=== PATIENT | female | born 1990 | race Caucasian/White ===

== ENCOUNTER → 2020-11-11 | Outpatient (CLI) | payer OTHER ==
--- NOTE | 2020-11-11 10:37 | US ---
EXAMINATION TYPE: US OB anatomy transabd DATE OF EXAM: 11/11/2020 COMPARISON: NONE HISTORY: O36.62XO Large for dates TECHNIQUE: Transabdominal (TA) EXAM MEASUREMENTS: GESTATIONAL AGE / DATING Physician Established: (25 weeks/0 days) EDC: 02/24/2021 Dates by LMP: (25 weeks/0 days) EDC: 02/24/2021 Dates by First Scan: No previous here Dates by Current Scan for: (25 weeks/0 days) EDC: 02/24/2021 SURVEY IUP: Single PLACENTA: Anterior PREVIA: No previa, low lying placenta seen, reevaluated post void, shows no previa ROCIO: 12.7 cm Normal CERVICAL LENGTH (transabdominal: norm > 3.0cm): 3.9 cm BIOMETRY PRESENTATION: Vertex BPD: 6.2 cm 25 weeks / 0 days HC: 22.2 cm 24 weeks / 2 days AC: 21.5 cm 26 weeks / 0 days FL: 4.8 cm 26 weeks / 0 days ESTIMATED WEIGHT IN GRAMS: 847.9 grams ESTIMATED WEIGHT IN LBS/OZ: 1 lbs. 14 oz. WEIGHT PERCENTAGE BASED ON ESTABLISHED DATE: 74 % HC/AC: 1.04 Normal FL/AC: 22.26 Normal HEART RATE: 166 bpm RHYTHM: Normal ANATOMY SEEN (within normal limits): * Lateral Vent (< 1 cm) 0.9 cm * Cisterna Magna (< 1.1 cm) 0.6 cm * Nuchal Fold (< 0.6 cm) 0.3 cm * Cerebellum (varies with age) 2.7 cm Choroid Plexus (bilateral) Midline Falx Cavus Septi Pellucidi Four Chamber Heart Outflow tracts: LVOT/RVOT Stomach Situs Nose / Lips Diaphragm Kidneys (bilateral) Bladder Cord Insert Three Vessel Cord Legs (bilateral) ANATOMY NOT SEEN: Due to position Longitudinal Spine Transverse Spine Arms (bilateral) Viable single IUP measuring 25 weeks 0 days with heart rate of 166bpm and an estimated delivery date of 02/24/2021. Patient returning for OB call back for anatomy not seen on today's exam. IMPRESSION: Single viable intrauterine as noted above. OB callback as noted.
== END | disposition home or self-care (01) ==
LOC: RADUSWWP 09:17
PROVIDERS: ATTEND Obstetrics & Gynecology
DX: O36.62X0 Maternal care for excessive fetal growth, second trimester, not applicable or unspecified (principal); Z3A.00 Weeks of gestation of pregnancy not specified
CPT/HCPCS: 76811

== ENCOUNTER → 2020-11-26 | Outpatient (CLI) | payer OTHER ==
--- NOTE | 2020-11-26 15:49 | US ---
EXAMINATION TYPE: US OB Call Back DATE OF EXAM: 11/26/2020 COMPARISON: US CLINICAL HISTORY: OB CALLBACK. Assess spine longitudinal Transverse, plus bilateral arms. GESTATIONAL AGE / DATING Dates by Initial Survey Scan: (25 weeks/ 0 days) EDC: 02/24/21 HEART RATE: 146 bpm RHYTHM: Normal ANATOMY SEEN (second anatomic survey look): Longitudinal Spine: wnl Transverse Spine: wnl Arms (bilateral): seen IMPRESSION: Limited ultrasound, no evident abnormality
== END | disposition home or self-care (01) ==
LOC: RADUSWWP 14:08
PROVIDERS: ATTEND Obstetrics & Gynecology
DX: Z53.9 Procedure and treatment not carried out, unspecified reason (principal)

== ENCOUNTER 2021-02-18 21:46 | Inpatient (IN) | payer OTHER ==
[2021-02-18] MEDS ORDERED: METHYLERGONOVINE 0.2 MG/ML 1 ML AMP IM PRN (22:16)
[2021-02-18] MEDS ORDERED: TERBUTALINE 1 MG/ML VIAL SQ PRN (22:16)
[2021-02-18] MEDS ORDERED: CARBOPROST TROMETHAMINE 250 MCG/ML 1 ML AMP IM PRN (22:16)
[2021-02-18] MEDS ORDERED: OXYTOCIN 10 UNIT/ML 1 ML VIAL IM PRN (22:16)
[2021-02-18] MEDS ORDERED: LIDOCAINE 0.5% (PF) 5 MG/ML (50 ML SDV) SQ PRN (22:16)
[2021-02-18] MEDS ORDERED: OXYTOCIN 30 UNITS/500 ML NS 30 UNIT in SALINE 1 500ML.BAG IV SCH (22:30)
[2021-02-18] MEDS ORDERED: LACTATED RINGERS 1,000 ML IV SCH (22:30)
[2021-02-18] MEDS: LACTATED RINGERS 1,000 ML IV SCH (22:30)
[2021-02-18] MEDS ORDERED: BUTORPHANOL 1 MG/ML 1 ML VIAL IV PRN (22:34)
[2021-02-18 22:40] LABS: Basophils % (A) 0 %; Eosinophils # (A) 0.1 k/uL (0-0.7); Eosinophils % (A) 1 %; HCT 36.8 % (34.0-46.0); HGB 12.2 gm/dL (11.4-16.0); Lymphocytes # (A) 2.3 k/uL (1.0-4.8); Lymphocytes % (A) 28 %; MCH 29.2 pg (25.0-35.0); MCHC 33.3 g/dL (31.0-37.0); MCV 87.9 fL (80.0-100.0); Mean Platelet Volume 10.3; Monocytes # (A) 0.5 k/uL (0-1.0); Monocytes % (A) 6 %; Neutrophils # (A) 5.3 k/uL (1.3-7.7); Neutrophils % (A) 64 %; Platelet Count 191 k/uL (150-450); RBC 4.18 m/uL (3.80-5.40); RDW 14.6 % (11.5-15.5); WBC 8.4 k/uL (3.8-10.6)
[2021-02-19] MEDS: LACTATED RINGERS 1,000 ML IV SCH ×2 (05:51→10:30)
[2021-02-19] MEDS ORDERED: AMPICILLIN 2,000 MG in SODIUM CHLORIDE 0.9% 100 ML IVPB STA (07:22)
[2021-02-19 07:34] LABS: Glucose,Whole Blood 74 mg/dL (75-99)
--- NOTE | 2021-02-19 07:43 | P.HPOB ---
History of Present Illness H&P Date: 02/18/21 Chief Complaint: SROM 30-year-old presents at 39 weeks and 2 days complaining of spontaneous rupture of membranes at 1940. Admission was positive in triage. Her cervix is 1 cm dilated, 50% effaced, and -2 station. She is not kyle. heart tones 140 with moderate variability and reactive. Review of Systems All systems: negative Constitutional: Denies chills, Denies fever Eyes: denies blurred vision, denies pain Ears, nose, mouth and throat: Denies headache, Denies sore throat Cardiovascular: Denies chest pain, Denies shortness of breath Respiratory: Denies cough Gastrointestinal: Denies abdominal pain, Denies diarrhea, Denies nausea, Denies vomiting Genitourinary: Denies dysuria, Denies hematuria Musculoskeletal: Denies myalgias Integumentary: Denies pruritus, Denies rash Neurological: Denies numbness, Denies weakness Psychiatric: Denies anxiety, Denies depression Endocrine: Denies fatigue, Denies weight change Past Medical History Additional Past Medical History / Comment(s): Gestational DM A1 History of Any Multi-Drug Resistant Organisms: None Reported Additional Past Surgical History / Comment(s): [place] teeth Past Anesthesia/Blood Transfusion Reactions: No Reported Reaction Past Psychological History: No Psychological Hx Reported Smoking Status: Never smoker Past Drug Use History: None Reported - Past Family History Mother Family Medical History: Thyroid Disorder Additional Family Medical History / Comment(s): Grandma DM Medications and Allergies Home Medications Medication Instructions Recorded Confirmed Type Acyclovir 1 tab PO BID 02/18/21 02/18/21 History Pnv No.95/Ferrous Fum/Folic AC 1 tab PO DAILY 02/18/21 02/18/21 History [ Multivitamin Tablet] Allergies Allergy/AdvReac Type Severity Reaction Status Date / Time No Known Allergies Allergy Verified 02/18/21 21:53 Exam Osteopathic Statement: *. No significant issues noted on an osteopathic structural exam other than those noted in the History and Physical/Consult. Vital Signs Temp Pulse Resp BP Pulse Ox 02/18/21 22:14 96.4 F L 100 16 145/99 97 02/18/21 22:07 98 F 100 18 145/99 97 Intake and Output 02/18/21 02/19/21 02/19/21 22:59 06:59 14:59 Other: Weight 86.183 kg Heart: Regular rate and rhythm Lungs: Clear to auscultation bilaterally Abdomen: Soft, nontender Extremities: Negative Homans sign Results Result Diagrams: 02/18/21 22:33 Abnormal Lab Results - Last 24 Hours (Table) 02/19/21 Range/Units 07:33 POC Glucose (mg/dL) 74 L (75-99) mg/dL Assessment and Plan (1) Spontaneous rupture of membranes Current Visit: Yes Status: Acute Code(s): RXH0252 - SNOMED Code(s): 167104380 (2) 39 weeks gestation of Current Visit: Yes Status: Acute Code(s): Z3A.39 - 39 WEEKS GESTATION OF SNOMED Code(s): 99175188 (3) Gestational diabetes mellitus, class A1 Current Visit: Yes Status: Acute Code(s): O24.410 - GESTATIONAL DIABETES MELLITUS IN , DIET CONTROLLED SNOMED Code(s): 98969405 Plan: 1. Admit to family place 2. Pitocin augmentation 3. Check blood sugar once 4. Anticipate normal vaginal delivery
[2021-02-19] MEDS ORDERED: AMPICILLIN 1,000 MG in SODIUM CHLORIDE 0.9% 50 ML IVPB SCH (11:30)
[2021-02-19] MEDS ORDERED: ROPIVACAINE 100 MG, fentaNYL (PF). 200 MCG in SODIUM CHLORIDE 0.9% 76 ML EPIDURAL ONE (12:42)
[2021-02-19] MEDS ORDERED: LANOLIN CREAM 5 GM TUBE TOPICAL PRN (14:56)
[2021-02-19] MEDS ORDERED: bisacodyL 10 MG SUPP RECTAL PRN (14:56)
[2021-02-19] MEDS ORDERED: HYDROCORTISONE 2.5% RECTAL CREAM 30 GM TUBE RECTAL PRN (14:56)
[2021-02-19] MEDS ORDERED: diphenhydrAMINE 50 MG/ML 1 ML VIAL IVP PRN (14:56)
[2021-02-19] MEDS ORDERED: ZOLPIDEM 5 MG TAB PO PRN (14:56)
[2021-02-19] MEDS ORDERED: OXYTOCIN 30 UNITS/500 ML NS 30 UNIT in SALINE 1 500ML.BAG IV SCH (14:56)
[2021-02-19] MEDS ORDERED: SIMETHICONE 80 MG CHEWABLE PO PRN (14:56)
[2021-02-19] MEDS ORDERED: diphenhydrAMINE 25 MG CAP PO PRN (14:56)
[2021-02-19] MEDS ORDERED: BENZOCAINE/MENTHOL SPRAY 1 GM/SPRAY AEROSOL TOPICAL PRN (14:56)
[2021-02-19] MEDS: IBUPROFEN 600 MG TAB PO PRN ×2 (16:44→23:45)
--- NOTE | 2021-02-19 18:57 | P.PROBDLV ---
Vaginal Delivery Note - . Vaginal Delivery Note: Normal vaginal delivery viable female Apgars 9 and 9 delivery time is 1434 hrs. Please see dictated H&P for intimate details of this patient's admission. in brief summary this is a pleasant 30-year-old 1 para 0 female 39-2/7 weeks gestation admitted last evening by Dr. Delaney with spontaneous rupture membranes. Patient was not having any significant contractions, therefore Pitocin was started. This morning a fore bag was ruptured for large amount of clear fluid. Labor progresses quickly thereafter and she did request an epidural for pain control. Patient got to complete pushes for approximately 1 hour. She pushed the head to the perineum. Posterior perineum was then supported and we have controlled delivery of the 's head over the intact perineum. Mouth and nares are bulb suctioned. Is no evidence of a nuchal cord. 's head is straight occiput anterior presentation. At this time we have gentle downward traction and maternal effort we have delivery the anterior and posterior shoulder and rest this 's body. This is a vigorous viable female Apgars 9 and 9 delivery time is 1434 hrs. After delivery of the , the infant is late on the mother's abdomen. After the cord is done pulsating is then doubly clamped and cut. It appears to be trivascular. The placenta is then spontaneously delivered intact. Estimated blood loss is approximately 150 mL. Inspection of the perineum shows a first-degree posterior laceration which is repaired with 3-0 Vicryl usual fashion. Excellent reapproximation is noted. All counts are correct 3. There are no complications. and mother are stable in delivery room.
[2021-02-19] MEDS: ACETAMINOPHEN TAB 325 MG TAB PO PRN (20:14)
[2021-02-19] MEDS: SENNOSIDES-DOCUSATE SODIUM 1 EACH TAB PO SCH (20:15)
[2021-02-20] MEDS: ACETAMINOPHEN TAB 325 MG TAB PO PRN ×2 (05:43→13:15)
--- NOTE | 2021-02-20 07:13 | P.PNOBGVD ---
Subjective - Subjective Patient reports: Reports appetite normal, Reports voiding normally, Reports pain well controlled, Reports ambulating normally : doing well Objective - Latest Vital Signs Latest vital signs: Vital Signs Temp Pulse Resp BP Pulse Ox 02/19/21 23:48 97.7 F 92 16 130/89 98 02/19/21 20:00 98.1 F 88 16 135/90 97 02/19/21 16:50 98 16 133/78 02/19/21 16:20 108 H 16 140/73 02/19/21 15:50 112 H 16 131/78 02/19/21 15:35 116 H 16 124/62 02/19/21 15:20 118 H 16 138/62 02/19/21 15:05 109 H 16 145/69 02/19/21 14:50 98.5 F 116 H 16 163/83 Intake and Output 02/19/21 02/20/21 02/20/21 22:59 06:59 14:59 Intake Total 167 Balance 167 Intake: Intake, IV Titration 167 Amount Oxytocin 30 Units/500 ml 167 Ns 30 unit In Saline 1 500ml.bag @ Per Protocol IV .Q0M [facility] Rx#:[id number] Other: # Voids 1 1 - Exam Lungs: bilateral: normal Chest: Normal S1, Normal S2 Extremities: Present: normal Abdomen: Present: normal appearance, soft Uterus: Present: normal, firm - Labs Labs: Abnormal Lab Results - Last 24 Hours (Table) 02/19/21 Range/Units 07:33 POC Glucose (mg/dL) 74 L (75-99) mg/dL Assessment and Plan Assessment: day #1. Patient is resting without complaints and wishes to go home. Vital signs are stable she is afebrile. Uterus is firm nontender and she is having normal lochia. My impression is that this is a normal course. Plan is to continue routine care discharge home later today. (1) Normal vaginal delivery Current Visit: Yes Status: Acute Code(s): O80 - ENCOUNTER FOR FULL-TERM UNCOMPLICATED DELIVERY SNOMED Code(s): 26847099
--- NOTE | 2021-02-20 07:22 | P.DS ---
Providers Date of admission: 02/18/21 22:04 Expected date of discharge: 02/20/21 Attending physician: Susan Delaney Primary care physician: Stated None - Discharge Diagnosis(es) (1) Normal vaginal delivery Current Visit: Yes Status: Acute Hospital Course: Please see dictated H&P per Dr. Delaney on this patient's admission. In brief summary this is a pleasant 30-year-old 1 para 0 female admitted to labor and delivery with spontaneous rupture membranes. Patient had induction of labor and subsequent on to have a vaginal delivery viable female infant. Please see dictated delivery note. On day #1 patient wishes to go home was felt be stable for discharge home follow up with Dr. Delaney and 6 weeks. Procedures: Induction of labor and normal vaginal delivery. Patient Condition at Discharge: Good Plan - Discharge Summary New Discharge Prescriptions: New Ibuprofen [Motrin] 600 mg PO Q6HR PRN #30 tab PRN Reason: Pain No Action Pnv No.95/Ferrous Fum/Folic AC [ Multivitamin Tablet] 1 tab PO DAILY Acyclovir 1 tab PO BID Discharge Medication List Acyclovir 1 tab PO BID 02/18/21 [History] Pnv No.95/Ferrous Fum/Folic AC [ Multivitamin Tablet] 1 tab PO DAILY 02/18/21 [History] Ibuprofen [Motrin] 600 mg PO Q6HR PRN #30 tab 02/20/21 [Rx] Follow up Appointment(s)/Referral(s): Susan Delaney DO [Doctor of Osteopathic Medicine] - 03/30/21 3:45 pm Patient Instructions/Handouts: Vaginal Delivery (DC) Activity/Diet/Wound Care/Special Instructions: No intercourse or anything per vagina for 6 weeks. Please call if any fever, chills, excessive vaginal bleeding, and/or abdominal pain. Discharge Disposition: HOME SELF-CARE
[2021-02-20] MEDS: IBUPROFEN 600 MG TAB PO PRN (08:51)
[2021-02-20] MEDS: SENNOSIDES-DOCUSATE SODIUM 1 EACH TAB PO SCH (08:51)
[2021-02-20 11:43] LABS: Uric Acid 4.8 mg/dL (3.7-7.4)
[2021-02-20 17:37] VITALS: BP 119/81; PULSE 91; RESP 16; TEMP 98.7
== END 2021-02-20 17:10 | disposition home or self-care (01) | DRG 807 ==
LOC: FBPOP 21:46 → 4FBP 22:04
PROVIDERS: ADMIT Obstetrics & Gynecology; ATTEND Obstetrics & Gynecology
PROC: 10E0XZZ Delivery of Products of Conception, External Approach (ICD-10-PCS; principal; 2021-02-18)
PROC: 4A0HXCZ Measurement of Products of Conception, Cardiac Rate, External Approach (ICD-10-PCS; 2021-02-18)
PROC: 3E033VJ Introduction of Other Hormone into Peripheral Vein, Percutaneous Approach (ICD-10-PCS; 2021-02-18)
PROC: 0HQ9XZZ Repair Perineum Skin, External Approach (ICD-10-PCS; 2021-02-18)
DX: O24.420 Gestational diabetes mellitus in childbirth, diet controlled (principal); O70.0 First degree perineal laceration during delivery; Z37.0 Single live birth; Z3A.39 39 weeks gestation of pregnancy
CPT/HCPCS: 59025; 84112; 84450; 84460; 84550; 85025; 86850; 86900; 86901; 99213

== ENCOUNTER → 2022-07-14 | Outpatient (CLI) | payer OTHER ==
--- NOTE | 2022-07-14 17:38 | US ---
EXAMINATION TYPE: US OB anatomy transabd DATE OF EXAM: 07/14/2022 COMPARISON: OB ultrasound less than 14 weeks 05/11/2022. CLINICAL INDICATION: Female, 31 years old with history of O36.62X0 LARGE FOR DATES; LGA TECHNIQUE: Transabdominal (TA) EXAM MEASUREMENTS: GESTATIONAL AGE / DATING Physician Established: (19 weeks/0 days) EDC: 12/08/22 Dates by LMP: ( weeks/19 days) 0 EDC: 12/08/22 Dates by First Scan: (19 weeks/1 days) EDC: 12/07/22 Dates by Current Scan for: (19 weeks/2 days) EDC: 12/06/22 SURVEY IUP: Single PLACENTA: Posterior PREVIA: No previa ROCIO: 13.2 cm Normal CERVICAL LENGTH (transabdominal: norm > 3.0cm): 4.1 cm BIOMETRY PRESENTATION: Vertex LIE: Longitudinal BPD: 4.1 cm 18 weeks / 4 days HC: 15.8 cm 18 weeks / 5 days AC: 14.5 cm 19 weeks / 6 days FL: 3.2 cm 20 weeks / 0 days ESTIMATED WEIGHT IN GRAMS: 309 grams ESTIMATED WEIGHT IN LBS/OZ: 0 lbs. 11 oz. WEIGHT PERCENTAGE BASED ON ESTABLISHED DATE: 85 % HC/AC: 22% FL/AC: 1.09 Normal HEART RATE: 149 bpm RHYTHM: Normal ANATOMY SEEN (within normal limits): * Lateral Vent (< 1 cm) 0.4 cm * Cisterna Magna (< 1.1 cm) 0.4 cm * Nuchal Fold (< 0.6 cm) 0.3 cm * Cerebellum (varies with age) 1.8 cm Choroid Plexus (bilateral) Midline Falx Cavus Septi Pellucidi Four Chamber Heart Outflow tracts: LVOT/RVOT Stomach Situs Nose / Lips - limited due to hand placement Diaphragm Kidneys (bilateral) Bladder Cord Insert Three Vessel Cord Longitudinal Spine Transverse Spine Arms (bilateral) Legs (bilateral) Single live intrauterine gestation. IMPRESSION: Single live intrauterine gestation with estimated gestational age of 19 weeks 2 days with estimated d ue date of 12/06/2022. The visualized anatomy is within normal limits with limited evaluation of the nose/lips due to hand placement. This can be reassessed on follow-up imaging.
== END | disposition home or self-care (01) ==
LOC: RADUSWWP 15:03
PROVIDERS: ATTEND Obstetrics & Gynecology
DX: O36.62X0 Maternal care for excessive fetal growth, second trimester, not applicable or unspecified (principal); Z3A.19 19 weeks gestation of pregnancy
CPT/HCPCS: 76811

== ENCOUNTER → 2022-11-03 | Outpatient (CLI) | payer OTHER ==
--- NOTE | 2022-11-03 15:38 | US ---
EXAMINATION TYPE: US OB >= 14 wk fetus DATE OF EXAM: 11/03/2022 COMPARISON: US 2022 CLINICAL INDICATION: Female, 32 years old with history of O36.63X0 MATERNAL CARE FOR EXCESS SAUNDRA WTH, TH; TECHNIQUE: Transabdominal (TA) GESTATIONAL AGE / DATING Physician Established: (35 weeks/0 days) EDC: 12/08/2022 Dates by LMP: (35 weeks/0 days) EDC: 12/08/2022 Dates by First Scan: (35 weeks/1 days) EDC: 12/07/2022 Dates by Current Scan: (36 weeks/2 days) EDC: 11/29/2022 SURVEY IUP: Single PLACENTA: Posterior PREVIA: No Previa ROCIO: 11.1cm cm Normal CERVICAL LENGTH (transabdominal: norm > 3.0cm): 4.2 cm BIOMETRY PRESENTATION: Breech LIE: Longitudinal BPD: 9.1 cm 37 weeks / 1 days HC: 32.6 cm 37 weeks / 0 days AC: 31.5 cm 35 weeks / 3 days FL: 6.7 cm 35 weeks / 2 days ESTIMATED WEIGHT IN GRAMS: 2746 grams ESTIMATED WEIGHT IN LBS/OZ: 6 lbs. 1 oz. WEIGHT PERCENTAGE BASED ON ESTABLISHED DATES: 68% HC/AC: 1.04 Normal FL/AC: 22% Normal HEART RATE: 136 bpm RHYTHM: Normal Single live intrauterine gestation. IMPRESSION: Single live intrauterine gestation with estimated gestational age of 36 weeks 2 days and estimated du e date of 11/29/2022.
== END | disposition home or self-care (01) ==
LOC: RADUSWWP 14:21
PROVIDERS: ATTEND Obstetrics & Gynecology
DX: O36.63X0 Maternal care for excessive fetal growth, third trimester, not applicable or unspecified (principal); O32.1XX0 Maternal care for breech presentation, not applicable or unspecified; Z3A.36 36 weeks gestation of pregnancy
CPT/HCPCS: 76805

== ENCOUNTER → 2023-04-26 | Outpatient (CLI) | payer OTHER | END | disposition home or self-care (01) | LOC: LABWHC1 16:06 | PROVIDERS: ATTEND Obstetrics & Gynecology | DX: N91.2 Amenorrhea, unspecified (principal); N94.89 Other specified conditions associated with female genital organs and menstrual cycle | CPT/HCPCS: 36415; 84702 ==